=== PATIENT | female | born 1965 | race African-American/Black ===

== ENCOUNTER 2018-03-01 18:17 | Inpatient (IN) | payer OTHER ==
[~2018-03-01] VITALS: Ht 175.3 cm; Wt 112.1 kg
[2018-03-01 18:59] LABS: ABSOLUTE BASOPHIL COUNT 0 /CUMM (0.0-0.2); ABSOLUTE EOSINOPHIL COUNT 0.1 /CUMM (0.0-0.7); ABSOLUTE GRANULOCYTE CT 2.8 /CUMM (1.4-6.5); ABSOLUTE LYMPH COUNT 3.4 /CUMM (1.2-3.4); ABSOLUTE MONOCYTE COUNT 0.7 /CUMM (0.10-0.60); BASOPHIL % 0.7 % (0.0-2.0); EOSINOPHIL % 1.1 % (0-5); GRANULOCYTE % 39.7 % (42.2-75.2); HEMATOCRIT 36.7 % (37-47); MEAN CORPUSCULAR HGB 22.9 PG (27.0-31.0); MEAN CORPUSCULAR HGB CONC 31.6 G/DL (33.0-37.0); MEAN CORPUSCULAR VOLUME 72.3 FL (81.0-99.0); MEAN PLATELET VOLUME 7.6 FL (7.4-10.4); PLATELET COUNT 400 /CUMM (130-400); RBC DISTRIBUTION WIDTH 18.1 % (11.5-14.5); RED BLOOD CELL CT 5.08 /CUMM (4.20-5.40)
--- NOTE | 2018-03-01 19:00 | ED GENERAL ADULT ---
History of Present Illness General Chief Complaint: General Adult Stated Complaint: BIBA HEAD TRAUMA, HYPERTENSIVE CRISIS, EKG CHANGES Source: patient Exam Limitations: no limitations Vital Signs & Intake/Output Vital Signs & Intake/Output Vital Signs Date Time Temp Pulse Resp B/P B/P Pulse O2 O2 Flow FiO2 Mean Ox Delivery Rate 03/02 0400 158/88 03/02 0010 98.8 68 18 172/98 99 Room Air 07/ 2343 Room Air 07/ 2220 60 18 168/93 100 Room Air 07/ 2147 62 18 188/90 100 Room Air 07/06 2121 98.8 65 18 207/98 100 Room Air 07/06 2108 222/102 07/06 2104 98.7 68 18 199/92 99 Room Air / 2049 70 18 222/102 98 Room Air / 2030 98.7 67 18 222/102 /06 2002 98.9 72 18 186/89 100 Room Air / 1947 65 18 214/107 07/ 1945 18 192/83 07/ 1923 85 18 217/103 03/01 1905 Room Air Room Air 03/01 1835 98.8 85 18 202/114 97 Room Air Room Air ED Intake and Output 03/02 0000 0706 1200 Intake Total Output Total Balance Patient 222 lb Weight Weight Bed scale Measurement Method Allergies Coded Allergies: shellfish derived (Severe, ANAPHYLAXIS 03/01/18) codeine (Intermediate, SEVERE HEADACHE 03/01/18) Reconcile Medications Nebivolol HCl (Bystolic) (Unknown Strength) TABLET (Unknown Dose) PO DAILY BP (Reported) Triage Note: PT BIBA FROM URGENT CARE FOR EKG CHANGES, HYPERTENSION S/P EARLIER TODAY PT WAS IN THE BATHROOM WHEN CEILING TILES FELL ON BACK OF HEAD AND NECK. PT COMPLAINS OF L SHOULDER/ARM PAIN, NECK PAIN. INITIALLY HAD SOME DIZZINESS, BUT HAS SINCE RESOLVED. PT ALSO HYPERTENSIVE BUT HAS BEEN NON-COMPLIANT WITH BYSTOLIC MED FOR 2 WEEKS. DENIES CHEST PAIN, SOB, DIZZINESS, CHANGE IN VISION. Triage Nurses Notes Reviewed? yes Onset: Abrupt Duration: hour(s): Timing: recent history Injury Environment: work Severity: moderate Modifying Factors: Improves With: rest. Associated Symptoms: headache HPI: 52 YO WOMAN, h/o htn, not presently taking her meds, presents with headache after a ceiling collapsed on her head at approximately 3: 30pm. She notes, "I was feeling okay, had a little bit of a headache, but then my boss called me and told me to come in.... I went to urgent care and they said my blood pressure was too high and I needed to come in." She notes a headache, mild photophobia, dizziness. She notes neck pain, but no other injury. Past History Travel History Traveled to [place] past 21 day No Medical History Any Pertinent Medical History? see below for history Neurological: NONE EENT: NONE Cardiovascular: hypertension Respiratory: NONE Gastrointestinal: NONE Hepatic: NONE Renal: NONE Musculoskeletal: NONE Psychiatric: NONE Endocrine: NONE Blood Disorders: NONE Cancer(s): NONE Surgical History Surgical History: none Psychosocial History What is your primary language Ken[place] Tobacco Use: Never used ETOH Use: denies use Illicit Drug Use: denies illicit drug use Family History Hx Contributory? No Review of Systems Review of Systems Constitutional: Reports: no symptoms. EENTM: Reports: no symptoms. Respiratory: Reports: no symptoms. Cardiovascular: Reports: no symptoms. GI: Reports: no symptoms. Genitourinary: Reports: no symptoms. Musculoskeletal: Reports: no symptoms. Skin: Reports: no symptoms. Neurological/Psychological: Reports: no symptoms. Hematologic/Endocrine: Reports: no symptoms. Immunologic/Allergic: Reports: no symptoms. All Other Systems: Reviewed and Negative Physical Exam Physical Exam General Appearance: well developed/nourished, mild distress Head: atraumatic, normal appearance Eyes: Bilateral: normal appearance. Ears, Nose, Throat: normal pharynx, normal ENT inspection Neck: paracervical muscle spasm to palpation. Respiratory: normal breath sounds, chest non-tender, no respiratory distress, quiet respiration, lungs clear Cardiovascular: regular rate/rhythm Gastrointestinal: normal bowel sounds, soft, non-tender, no organomegaly Back: normal inspection, normal range of motion Extremities: normal inspection, normal capillary refill, normal range of motion, no edema Neurologic/Psych: no motor/sensory deficits, awake, alert, oriented x 3 Skin: intact, normal color, warm/dry Core Measures ACS in differential dx? No CVA/TIA Diagnosis: No Sepsis Present: No Sepsis Focused Exam Completed? No Progress Differential Diagnoses I considered the following diagnoses in my evaluation of the patient: concussion vs hypertensive urgency vs other. Plan of Care: Orders Procedure Date/time Status Heart Healthy Diet 03/02 B Active TROPONIN LEVEL 03/02 600 Active CBC WITHOUT DIFFERENTIAL 03/02 600 Active BASIC ELECTROLYTES PLUS BUN&CR 03/02 600 Active EKG 03/02 600 Active ECHOCARDIOGRAM 03/02 0514 Active Precautions 03/02 UNK Active Heart Healthy Diet 03/01 D Complete Weight 03/01 2342 Active Vital Signs 03/01 2342 Active Teach/Educate 03/01 2342 Active Pain Treatment and Response 03/01 2342 Active Nutritional Intake, Monitor 03/01 2342 Active Isolation 03/01 2342 Active Intake & Output 03/01 2342 Active Patient Care Conference 03/01 2342 Active Activity/Ambulation 03/01 2342 Active Pathway - chart 03/01 2323 Active Pathway - chart 03/01 2208 Active House Staff 03/01 220 Active TROPONIN LEVEL 03/01 214 Complete EKG 03/01 214 Active Patient Data 03/01 2140 Active Saline Lock 03/01 2139 Active Misc Message 03/01 2139 Active ED Holding Orders 03/01 2139 Active Admit to inpatient 03/01 213 Active Vital Signs 03/01 213 Active Code Status 03/01 2139 Active Intake & Output 03/01 1845 Active TROPONIN LEVEL 03/01 1822 Complete COMPREHENSIVE METABOLIC PANEL 03/01 182 Complete CBC WITHOUT DIFFERENTIAL 03/01 182 Complete EKG 03/01 1822 Active VTE Mechanical Prophylaxis 03/01 UNK Active Vital Signs 03/01 UNK Active Current Medications Sig/Yaneli Start time Last Medication Dose Stop Time Status Admin Enoxaparin Sodium 40 MG DAILY 03/02 900 AC (Lovenox) Lisinopril 10 MG DAILY 03/02 900 UNVr (Prinivil) Nebivolol 20 MG DAILY 03/02 900 UNVr (Bystolic) Acetaminophen 650 MG Q6P PRN 03/01 2330 AC (Tylenol) Ibuprofen 600 MG Q6P PRN 03/01 2330 AC (Motrin) Laboratory Tests 03/01/189: Troponin I 0.02 03/01/181847: Anion Gap 12, Estimated GFR > 60, BUN/Creatinine Ratio 18.8, Glucose 133 H, Calcium 9.7, Total Bilirubin 0.3, AST 27, ALT 36, Alkaline Phosphatase 129 H, Troponin I 0.02, Total Protein 8.1, Albumin 4.3, Globulin 3.8, Albumin/Globulin Ratio 1.1, CBC w Diff NO MAN DIFF REQ, RBC 5.08, MCV 72.3 L, MCH 22.9 L, MCHC 31.6 L, RDW 18.1 H, MPV 7.6, Gran % 39.7 L, Lymphocytes % 48.5, Monocytes % 10.0 H, Eosinophils % 1.1, Basophils % 0.7, Absolute Granulocytes 2.8, Absolute Lymphocytes 3.4, Absolute Monocytes 0.7 H, Absolute Eosinophils 0.1, Absolute Basophils 0 Diagnostic Imaging: Viewed by Me: CT Scan. Discussed w/RAD: CT Scan. Radiology Impression: PATIENT: RYAN GUERRA PRESENT AGE: 52 PATIENT ACCOUNT NO: [id number] : 63 LOCATION: [facility] ORDERING PHYSICIAN: Lakhwinder SANCHEZ SERVICE DATE: 03/01/18 EXAM TYPE: CAT - CT CERV SPINE WO IV CONTRAST; CT HEAD WO IV CONTRAST EXAMINATION: CT OF THE HEAD AND CERVICAL SPINE WITHOUT CONTRAST CLINICAL INFORMATION: HEAD INJURY HYPERTENSIVE URGENCY. TRAUMA COMPARISON: None. TECHNIQUE: Contiguous axial imaging was performed from the skull base to vertex. Soft tissue and bony algorithms were evaluated. Coronal reformatted images were obtained on the technologist's workstation. Following this, multiple serial thin slice helical CT scan images through the cervical spine were obtained. Soft tissue and bony algorithms were evaluated. Coronal and sagittal reformatted images were obtained on the technologist workstation. DLP: 957 mGy cm FINDINGS: Head CT: The ventricles are normal in size and symmetry. There is no evidence of acute intracranial hemorrhage or territorial infarction. No abnormal mass-effect or midline shift is seen. Montes to white matter differentiation is well preserved. No extra-axial fluid collections are identified. There is no abnormal attenuation within the brain parenchyma. The osseous structures and soft tissues are normal. The mastoid air cells and visualized portions of the paranasal sinuses are well-aerated. Cervical spine CT: No prevertebral soft tissue swelling is appreciated. Mild straightening of the normal cervical lordosis possibly due to positioning or spasm. Otherwise the bones are in normal anatomic alignment with no acute fracture or spondylolisthesis. Vertebral body heights are preserved. Mild multilevel degenerative changes are seen with prominent osteophyte formation and mild loss of disc height more prominent from C4 to C7. Posterior elements are unremarkable. Visualized airway and lung apices are unremarkable. Visualized thyroid gland unremarkable. IMPRESSION: Head CT: No acute intracranial pathology. C-spine: No acute bony abnormality in the cervical spine. Mild multilevel degenerative changes. DICTATED BY: Cachorro Ross MD DATE/TIME DICTATED:03/01/182012 PLUNGER MACHINE OPERATOR:SHAUN DATE/TIME TRANSCRIBED:03/01/182012 CONFIDENTIAL, DO NOT COPY WITHOUT APPROPRIATE AUTHORIZATION. <Electronically signed in Other Vendor System> SIGNED BY: Cachorro Ross MD 03/01/182019 CXR Impression: PATIENT: RYAN GUERRA PRESENT AGE: 52 PATIENT ACCOUNT NO: [id number] : 63 LOCATION: 1NO ORDERING PHYSICIAN: Arie Pedraza MD SERVICE DATE: 03/01/18 EXAM TYPE: RAD - XRY- PORTABLE CHEST XRAY EXAMINATION: XR PORTABLE CHEST CLINICAL INFORMATION: Hypertensive urgency. COMPARISON: None. TECHNIQUE: AP portable AP view of the chest FINDINGS: Lungs are clear. No consolidation, pneumothorax, or pleural effusion. Cardiac silhouette is at the upper limits of normal in size. Mediastinal contour is normal. Pulmonary vasculature is unremarkable. 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 No acute osseous findings. IMPRESSION: No acute pulmonary findings. Heart is at the upper limits of normal in size. DICTATED BY: Lorenzo Oneal MD DATE/TIME DICTATED:03/01/182315 PLUNGER MACHINE OPERATOR:SHAUN DATE/TIME TRANSCRIBED:03/01/182315 CONFIDENTIAL, DO NOT COPY WITHOUT APPROPRIATE AUTHORIZATION. <Electronically signed in Other Vendor System> SIGNED BY: Lorenzo Oneal MD 03/01/182320 Initial ED EKG: diffuse flipped t waves, nsr Repeat EKG: unchanged Departure Departure Disposition: HOME OR SELF CARE Condition: Stable Clinical Impression Primary Impression: Hypertensive urgency Secondary Impressions: Concussion Departure Forms: Customer Survey General Discharge Information Comments 03/01/18 21:10... pt still hypertensive w/ headache... pt has received several parenteral bp meds, still symptomatic... merits admission for further evaluation. Critical Care Note Critical Care Note Critical Care Time: 30-74 min
[2018-03-01] MEDS ORDERED: BYSTOLIC20 M1 PO (19:46)
--- NOTE | 2018-03-01 20:20 | CT SCAN REPORT ---
EXAMINATION: CT OF THE HEAD AND CERVICAL SPINE WITHOUT CONTRAST CLINICAL INFORMATION: HEAD INJURY HYPERTENSIVE URGENCY. TRAUMA COMPARISON: None. TECHNIQUE: Contiguous axial imaging was performed from the skull base to vertex. Soft tissue and bony algorithms were evaluated. Coronal reformatted images were obtained on the technologist's workstation. Following this, multiple serial thin slice helical CT scan images through the cervical spine were obtained. Soft tissue and bony algorithms were evaluated. Coronal and sagittal reformatted images were obtained on the technologist workstation. DLP: 957 mGy cm FINDINGS: Head CT: The ventricles are normal in size and symmetry. There is no evidence of acute intracranial hemorrhage or territorial infarction. No abnormal mass-effect or midline shift is seen. Montes to white matter differentiation is well preserved. No extra-axial fluid collections are identified. There is no abnormal attenuation within the brain parenchyma. The osseous structures and soft tissues are normal. The mastoid air cells and visualized portions of the paranasal sinuses are well-aerated. Cervical spine CT: No prevertebral soft tissue swelling is appreciated. Mild straightening of the normal cervical lordosis possibly due to positioning or spasm. Otherwise the bones are in normal anatomic alignment with no acute fracture or spondylolisthesis. Vertebral body heights are preserved. Mild multilevel degenerative changes are seen with prominent osteophyte formation and mild loss of disc height more prominent from C4 to C7. Posterior elements are unremarkable. Visualized airway and lung apices are unremarkable. Visualized thyroid gland unremarkable. IMPRESSION: Head CT: No acute intracranial pathology. C-spine: No acute bony abnormality in the cervical spine. Mild multilevel degenerative changes.
--- NOTE | 2018-03-01 21:52 | History & Physical ---
Raf Martin 03/01/18 2151: General Information and HPI MD Statement: I have seen and personally examined RYAN GUERRA and documented this H&P. The patient is a 52 year old F who presented with a patient stated chief complaint of [HTN crisis and head trauma]. Source of Information: patient, family Exam Limitations: no limitations History of Present Illness: The patient is a 52 years old lady who was in ED due to hypertensive emergency ( BP: 218/124) and abnormal ECG. She was at work this afternoon at 3:30, using the bathroom and the ceiling fell off on her head and shoulder, she did not fall down on the floor but she says that she is not sure if she had LOC. She was taken to urgernt care this afternoon at 3:45. Her BP was 208/120 at the urgent care. Once she was to be transfered here her BP was 218/124. She had no chest pain, SOB, visual changes, headache, abd pain, or N/V. She has a history of ten years of HTN and she has been on different medications in these years, lately she was on Bi-systolic, since it makes her feel sleepy she had stopped it from two weeks ago. She also reports increased salt intake in her diet recently. She is in school studying [employer] and she says that it causes stress to her. In the ED Labetolol and IV Tylenol were given to her. Her BP decreased to 168/ 93. Past medical history: As above Past surgical history: cholecystectomy, cataracts, ?therese in her right orbitofrontal region over her right eye s/p trauma Family history: No significant cardiac or hematologic history Social history: Denies smoking, occasional alcohol use (3 times per year), denies illicit drug use. Vitals: MAXIMUM TEMPERATURE 98.9, heart rate 60-80s, respiration rate 18, blood pressure 202/114 --> 214/107 --> 188/90-->168/93, saturating at 98-100% on room air Physical exam Gen.: Resting comfortably in bed HEENT: Normocephalic, atraumatic, pupils equal and reactive to light and accommodation, extraocular movements intact CVS: Regular rate rhythm, no murmurs, rubs or gallops appreciated Lungs: Clear to auscultation bilaterally Abdomen: Soft, nontender, nondistended, positive bowel sounds Neuro: Cranial nerves II through XII intact, motor and sensation intact Extremities: no edema, tenderness, cyanosis, pulses 2+ Labs: WBC 7, H&H 11.6 and 36.7, MCV 72.3, platelets 400 Sodium 142, potassium 3.7, chloride 100, bicarbonate 29, BUN 15, creatinine 0.8, glucose 133, calcium 9.7, T bili 0.3, AST 27, ALT 26, alkaline phosphatase 129, troponin 0.02 --> repeat troponin 0.02 EKG: Normal sinus rhythm, T-wave inversions in leads 1, 2, 3, aVF, V4, V5, V6, LVH Imaging: Chest x-ray: No acute pulmonary findings. Heart is at the upper limits of normal in size. Head CT: No acute intracranial pathology. C-spine: No acute bony abnormality in the cervical spine. Mild multilevel degenerative changes. Past History Travel History Traveled to [place] past 21 day No Medical History Neurological: NONE EENT: NONE Cardiovascular: hypertension Respiratory: NONE Gastrointestinal: NONE Hepatic: NONE Renal: NONE Musculoskeletal: NONE Psychiatric: NONE Endocrine: NONE Blood Disorders: NONE Cancer(s): NONE Surgical History Surgical History: none (Cataracts), cholecystectomy (cataracts) Past Family/Social History Psychosocial History ETOH Use: denies use Illicit Drug Use: denies illicit drug use Review of Systems Review of Systems EENTM: Reports: no symptoms. Cardiovascular: Reports: see HPI. Respiratory: Reports: no symptoms. GI: Reports: no symptoms. Genitourinary: Reports: no symptoms. Exam & Diagnostic Data Last 24 Hrs of Vital Signs/I&O Vital Signs Date Time Temp Pulse Resp B/P B/P Pulse O2 O2 Flow FiO2 Mean Ox Delivery Rate 03/02 0705 98.8 64 18 170/92 98 07/07 0400 158/88 07/ 0010 98.8 68 18 172/98 99 Room Air / 2343 Room Air / 2220 60 18 168/93 100 Room Air / 2147 62 18 188/90 100 Room Air 07/ 2121 98.8 65 18 207/98 100 Room Air 07/06 2108 222/102 / 210 98.7 68 18 199/92 99 Room Air / 2049 70 18 222/102 98 Room Air 07/ 2030 98.7 67 18 222/102 07/06 2002 98.9 72 18 186/89 100 Room Air 03/01 1947 65 18 214/107 03/01 194 18 192/83 03/01 192 85 18 217/103 03/01 1905 Room Air Room Air 03/01 183 98.8 85 18 202/114 97 Room Air Room Air Intake & Output 03/02 0800 07 0000 03/01 1600 Intake Total 320 Output Total Balance 320 Intake, Oral 320 Patient 222 lb Weight Weight Bed scale Measurement Method Physical Exam Skin Temp/Moisture Exam: Warm/Dry Sepsis Skin Exam (color): Normal for Ethnicity HEENT Atraumatic, PERRLA, EOMI Neck Supple, No JVD Cardiovascular Regular Rate, Normal S1, Normal S2, No Murmurs Lungs Clear to Auscultation, Normal Air Movement Abdomen Normal Bowel Sounds, Soft, No Tenderness Neurological Normal Speech, Strength at 5/5 X4 Ext Extremities No Clubbing, No Cyanosis, No Edema, Normal Pulses Vascular Normal Pulses Sepsis Peripheral Pulse Location: Dorsalis Pedis Sepsis Peripheral Pulse Exam: Normal Sepsis Cap Refill Exam: <2 Sec Assessment/Plan Assessment: The patient is a 52-year-old overweight -[place] female with significant past medical hx for HTN noncompliant with medications for the past two weeks presenting this admission for hypertensive urgency (218/124) and possible concussion status post recent trauma. As Ranked By This Provider Problem List: 1. Hypertensive urgency 2. Concussion Core Measures/Misc (05/13) Acute Coronary Syndrome ACS Diagnosis: No Congestive Heart Failure Congestive Heart Failure Diagnosis No Cerebrovascular Accident CVA/TIA Diagnosis: No VTE (View Protocol) VTE Risk Factors Age>40 No Mechanical VTE Prophylaxis d/t N/A MechProphylax Ordered No VTE Pharm Prophylaxis d/t NA PharmProphylax ordered Sepsis (View protocol) Sepsis Present: No If YES complete Sepsis Event Note If YES complete Sepsis Event Note Bipin YATESJuan José 03/02/18 0150: General Information and HPI MD Statement: I have seen and personally examined RYAN GUERRA and documented this H&P. The patient is a 52 year old F who presented with a patient stated chief complaint of [hypertensive Urgency]. Allergies/Medications Allergies: Coded Allergies: shellfish derived (Severe, ANAPHYLAXIS 03/01/18) codeine (Intermediate, SEVERE HEADACHE 03/01/18) Home Med list Nebivolol HCl (Bystolic) (Unknown Strength) TABLET (Unknown Dose) PO DAILY BP (Reported) Review of Systems Review of Systems Constitutional: Reports: see HPI. Exam & Diagnostic Data Last 24 Hrs of Vital Signs/I&O Vital Signs Date Time Temp Pulse Resp B/P B/P Pulse O2 O2 Flow FiO2 Mean Ox Delivery Rate 03/02 0010 98.8 68 18 172/98 99 Room Air 03/01 2343 Room Air 03/01 2220 60 18 168/93 100 Room Air 03/01 2147 62 18 188/90 100 Room Air 03/01 2121 98.8 65 18 207/98 100 Room Air 03/01 2108 222/102 / 2104 98.7 68 18 199/92 99 Room Air 03/01 2049 70 18 222/102 98 Room Air 03/01 2030 98.7 67 18 222/102 / 2002 98.9 72 18 186/89 100 Room Air 03/01 1947 65 18 214/107 03/01 1945 18 192/83 03/01 1923 85 18 217/103 03/01 1905 Room Air Room Air 03/01 1835 98.8 85 18 202/114 97 Room Air Room Air Intake & Output 03/02 0800 07 0000 03/01 1600 Intake Total Output Total Balance Patient 222 lb Weight Weight Bed scale Measurement Method Physical Exam General Appearance Alert, Oriented X3, Cooperative, No Acute Distress Skin No Rashes HEENT Atraumatic, PERRLA, EOMI Neck Supple, No JVD Cardiovascular Regular Rate, Normal S1, Normal S2, No Murmurs Lungs Clear to Auscultation Abdomen Normal Bowel Sounds, Soft Last 24 Hrs of Labs/Meir: Laboratory Tests 03/01/182148: Troponin I 0.02 03/01/18 184: Anion Gap 12, Estimated GFR > 60, BUN/Creatinine Ratio 18.8, Glucose 133 H, Calcium 9.7, Total Bilirubin 0.3, AST 27, ALT 36, Alkaline Phosphatase 129 H, Troponin I 0.02, Total Protein 8.1, Albumin 4.3, Globulin 3.8, Albumin/Globulin Ratio 1.1, CBC w Diff NO MAN DIFF REQ, RBC 5.08, MCV 72.3 L, MCH 22.9 L, MCHC 31.6 L, RDW 18.1 H, MPV 7.6, Gran % 39.7 L, Lymphocytes % 48.5, Monocytes % 10.0 H, Eosinophils % 1.1, Basophils % 0.7, Absolute Granulocytes 2.8, Absolute Lymphocytes 3.4, Absolute Monocytes 0.7 H, Absolute Eosinophils 0.1, Absolute Basophils 0 Core Measures/Misc (05/13) Sepsis (View protocol) If YES complete Sepsis Event Note If YES complete Sepsis Event Note Attending MD Review Statement Attending Statement Attending MD Statement: examined this patient, discuss w/resident/PA/SWINE GENETICS RESEARCHER Attending Assessment/Plan: This patient is a 52-year-old -[place] female with a minimal past medical history. She presents after being struck in the head by some falling debris in her place of work. When evaluated in the emergency department the patient was found to have severely elevated blood pressure which went as high as 222/102 patient received IV beta blockers and hydralazine with success. Currently she is running around 170/95 Upon evaluation the patient was sitting comfortably on the bed and felt a little bit funny without specific complaints. Assessment and plan Hypertensive urgency Currently controlled on IV medications Added enalapril and restarted bystolic Will observe overnight and modify as necessary Continue to follow blood pressure Watch for unsteadiness in gait Fall risk Lenard Lambert MD 03/02/18 0637: Core Measures/Misc (05/13) Sepsis (View protocol) If YES complete Sepsis Event Note If YES complete Sepsis Event Note Resident Review Statement Resident Statement: examined this patient, discussed with architect internship, discussed with family, reviewed EMR data (avail) Other Findings: Patient is a 52-year-old female with past medical history of long-standing hypertension diagnosed 10 years ago currently on bystolic presenting this admission after being sent in for abnormal EKG and elevated blood pressure. Patient reports that today at approximately 3:20 PM she was sitting in the bathroom on the toilet seat at work when the ceiling above her cell on her head. Patient denies any loss of consciousness. Denies falling. Denies any cuts or bruises. Reports significant left sided neck pain that radiates down her left shoulder. Rates it an 8 out of 10 in severity. Patient reports that she went to urgent care after the incident at work. At the urgent care facility she was told her blood pressure was elevated to 204/120 and that she had an abnormal EKG. Patient was sent to the ED by ambulance prior to which her repeat blood pressure was taken and was 218/124. Patient denies any chest pain, shortness of breath, visual disturbances, headaches, abdominal pain, nausea/vomiting. Patient reports that she has not been compliant with her blood pressure medication as it makes her feel tired and sleepy. Reports that the last time she took her medications and was 2 weeks ago. Patient states she has been tried on multiple antihypertensives however she has had side effects with each one. Reports the one she tolerates the best is bystolic. Patient also reports that she has increased her salt intake recently. Patient reports stress from her studiesis currently enrolled in classes for an [employer]. In the ED patient was given IV Tylenol, labetalol 20 mg IV 2, labetalol 300 mg by mouth 1. Patient's blood pressure came down to 188/90 and during interview was repeated and was 168/93. Past medical history: As above Past surgical history: cholecystectomy, cataracts, ?therese in her right orbitofrontal region over her right eye s/p trauma Family history: No significant cardiac or hematologic history Social history: Denies smoking, occasional alcohol use (3 times per year), denies illicit drug use. PCP: Dr. Sally Isbell Pharmacy: [facility] in [place] Vitals: MAXIMUM TEMPERATURE 98.9, heart rate 60-80s, respiration rate 18, blood pressure 202/114 --> 214/107 --> 188/90-->168/93, saturating at 98-100% on room air Physical exam Gen.: Resting comfortably in bed HEENT: Normocephalic, atraumatic, pupils equal and reactive to light and accommodation, extraocular movements intact CVS: Regular rate rhythm, no murmurs, rubs or gallops appreciated Lungs: Clear to auscultation bilaterally Abdomen: Soft, nontender, nondistended, positive bowel sounds Neuro: Cranial nerves II through XII intact, motor and sensation intact Extremities: no edema, tenderness, cyanosis, pulses 2+ Labs: WBC 7, H&H 11.6 and 36.7, MCV 72.3, platelets 400 Sodium 142, potassium 3.7, chloride 100, bicarbonate 29, BUN 15, creatinine 0.8, glucose 133, calcium 9.7, T bili 0.3, AST 27, ALT 26, alkaline phosphatase 129, troponin 0.02 --> repeat troponin 0.02 EKG: Normal sinus rhythm, T-wave inversions in leads 1, 2, 3, aVF, V4, V5, V6, LVH Imaging: Chest x-ray: No acute pulmonary findings. Heart is at the upper limits of normal in size. Head CT: No acute intracranial pathology. C-spine: No acute bony abnormality in the cervical spine. Mild multilevel degenerative changes. Assessment and plan: The patient is a 52-year-old obese -[place] female with significant past medical history for hypertension currently noncompliant with medications presenting this admission for hypertensive urgency and possible concussion status post recent trauma. Problems: Hypertensive Urgency Concussion s/p trauma Microcytic Anemia Admitted to telemetry Continue telemetry monitoring Repeat EKG and troponins ECHO Vitals every shift Repeat CBC and BEP in a.m. Heart healthy diet Restarted on Bystolic and started on ACEi Outpatient workup of anemia Diet: Heart healthy Code: Full code DVT PPx: Lovenox, ALPs
--- NOTE | 2018-03-01 23:21 | RADIOLOGY REPORT ---
EXAMINATION: XR PORTABLE CHEST CLINICAL INFORMATION: Hypertensive urgency. COMPARISON: None. TECHNIQUE: AP portable AP view of the chest FINDINGS: Lungs are clear. No consolidation, pneumothorax, or pleural effusion. Cardiac silhouette is at the upper limits of normal in size. Mediastinal contour is normal. Pulmonary vasculature is unremarkable. 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 No acute osseous findings. IMPRESSION: No acute pulmonary findings. Heart is at the upper limits of normal in size.
[2018-03-02 00:10] VITALS: BP 172/98
[2018-03-02 04:00] VITALS: BP 158/88
[2018-03-02 07:05] VITALS: BP 170/92
[2018-03-02 08:37] LABS: ABSOLUTE BASOPHIL COUNT 0 /CUMM (0.0-0.2); ABSOLUTE EOSINOPHIL COUNT 0.1 /CUMM (0.0-0.7); ABSOLUTE LYMPH COUNT 3.1 /CUMM (1.2-3.4); ABSOLUTE MONOCYTE COUNT 0.6 /CUMM (0.10-0.60); BASOPHIL % 0.6 % (0.0-2.0); EOSINOPHIL % 1.2 % (0-5); GRANULOCYTE % 34.3 % (42.2-75.2); MEAN CORPUSCULAR HGB 23.2 PG (27.0-31.0); MEAN CORPUSCULAR HGB CONC 31.9 G/DL (33.0-37.0); MEAN CORPUSCULAR VOLUME 72.8 FL (81.0-99.0); MEAN PLATELET VOLUME 7.9 FL (7.4-10.4); PLATELET COUNT 343 /CUMM (130-400); RBC DISTRIBUTION WIDTH 18.1 % (11.5-14.5); RED BLOOD CELL CT 4.67 /CUMM (4.20-5.40); WHITE BLOOD CELL COUNT 5.8 /CUMM (4.8-10.8)
--- NOTE | 2018-03-02 08:44 | PN- Housestaff ---
Serina YATES,Radha 03/02/18 0843: Subjective Follow-up For: Hypertensive urgency Concussion status post trauma Tele-Events Since Last Visit: Normal sinus rhythm Subjective: Patient seen and examined at bedside. No overnight events. Denies chest pain, headache, double vision, dizziness, weakness, numbness. Review of Systems Constitutional: Reports: no symptoms. Objective Last 24 Hrs of Vital Signs/I&O Vital Signs Date Time Temp Pulse Resp B/P B/P Pulse O2 O2 Flow FiO2 Mean Ox Delivery Rate 03/02 0804 170/92 / 0705 98.8 64 18 170/92 98 / 0400 158/88 03/02 0010 98.8 68 18 172/98 99 Room Air 03/01 2343 Room Air 03/01 2220 60 18 168/93 100 Room Air 03/01 2147 62 18 188/90 100 Room Air / 2121 98.8 65 18 207/98 100 Room Air / 2108 222/102 / 2104 98.7 68 18 199/92 99 Room Air 03/01 2049 70 18 222/102 98 Room Air / 2030 98.7 67 18 222/102 /06 2002 98.9 72 18 186/89 100 Room Air / 1947 65 18 214/107 / 1945 18 192/83 03/01 1923 85 18 217/103 03/01 1905 Room Air Room Air 03/01 1835 98.8 85 18 202/114 97 Room Air Room Air Intake & Output 03/02 1600 07/ 0800 07 0000 Intake Total 320 Output Total Balance 320 Intake, Oral 320 Patient 222 lb Weight Weight Bed scale Measurement Method Physical Exam General Appearance: Alert, Oriented X3, Cooperative, No Acute Distress Cardiovascular: Regular Rate, Normal S1, Normal S2, No Murmurs Lungs: Clear to Auscultation Abdomen: Soft, No Tenderness, No Hepatospenomegaly Neurological: Strength at 5/5 X4 Ext, Normal Tone, Sensation Intact Current Medications: Current Medications Sig/Yaneli Start time Last Medication Dose Route Stop Time Status Admin Acetaminophen 650 MG Q6P PRN 03/01 2330 AC PO Acetaminophen 0 .STK-MED ONE 03/01 1925 DC IV Acetaminophen 1,000 MG ONCE ONE 03/01 1915 DC 03/01 N/A 1 UNIT IV 03/01 1929 1930 Enalaprilat 2.5 MG STAT STA 03/01 2128 DC IV 03/01 2129 Enoxaparin Sodium 40 MG DAILY 03/02 900 AC 03/02 SC 0803 Enoxaparin Sodium 40 MG DAILY 03/02 900 CAN SC Hydralazine HCl 0 .STK-MED ONE 03/01 2138 DC .ROUTE Hydralazine HCl 10 MG ONCE ONE 03/01 2130 DC IV 03/01 2131 Ibuprofen 600 MG Q6P PRN 03/01 2330 DC PO Labetalol HCl 20 MG ONCE ONE 03/01 2100 DC 03/01 IV 03/01 Labetalol HCl 300 MG ONCE ONE 03/01 2030 DC 03/01 PO 03/01 Labetalol HCl 0 .STK-MED ONE 03/01 1925 DC IV Labetalol HCl 20 MG ONCE ONE 03/01 191 DC 03/01 IV 03/01 191 1947 Lisinopril 10 MG DAILY 03/02 900 AC PO Nebivolol 20 MG DAILY 03/02 900 AC 03/02 PO 0804 Last 24 Hrs of Lab/Meir Results Last 24 Hrs of Labs/Mics: Laboratory Tests 03/02/18 0656: Anion Gap 12, Estimated GFR > 60, BUN/Creatinine Ratio 15.6, Troponin I 0.02, CBC w Diff NO MAN DIFF REQ, RBC 4.67, MCV 72.8 L, MCH 23.2 L, MCHC 31.9 L, RDW 18.1 H, MPV 7.9, Gran % 34.3 L, Lymphocytes % 54.0 H, Monocytes % 9.9 H, Eosinophils % 1.2, Basophils % 0.6, Absolute Granulocytes 2.0, Absolute Lymphocytes 3.1, Absolute Monocytes 0.6, Absolute Eosinophils 0.1, Absolute Basophils 0 03/01/18 2149: Troponin I 0.02 03/01/18 1848: Anion Gap 12, Estimated GFR > 60, BUN/Creatinine Ratio 18.8, Glucose 133 H, Calcium 9.7, Total Bilirubin 0.3, AST 27, ALT 36, Alkaline Phosphatase 129 H, Troponin I 0.02, Total Protein 8.1, Albumin 4.3, Globulin 3.8, Albumin/Globulin Ratio 1.1, CBC w Diff NO MAN DIFF REQ, RBC 5.08, MCV 72.3 L, MCH 22.9 L, MCHC 31.6 L, RDW 18.1 H, MPV 7.6, Gran % 39.7 L, Lymphocytes % 48.5, Monocytes % 10.0 H, Eosinophils % 1.1, Basophils % 0.7, Absolute Granulocytes 2.8, Absolute Lymphocytes 3.4, Absolute Monocytes 0.7 H, Absolute Eosinophils 0.1, Absolute Basophils 0 Assessment/Plan Assessment: patient is a 52-year-old obese -[place] female with significant past medical history for hypertension currently noncompliant with medications presenting this admission for hypertensive urgency and possible concussion status post recent trauma. Assessment and plan 1. Hypertensive urgency 2. Concussion status post trauma. * Patient be monitored in telemetry. * Blood pressure is controlled. Today blood pressure is 170/92. We will make sure that the systolic blood pressure fall is not more than 20 mmHg in 24 hours to avoid stroke. * Patient is on nebivolol 20 daily. * If blood pressure is more than 180/90 we will add calcium channel paul. This was discussed with the patient. Patient denies taking lisinopril. * Pending echocardiogram to rule out any left ventricular hypertrophy given long -standing hypertension. * Patient had T-wave inversion in leads V4, V5, V6. We are not sure if this is new. We will get cardiology on board. According to the patient she had a stress test and echocardiogram done more than 6 years ago which was normal. * Diet-heart healthy diet * DVT prophylaxis-Lovenox Problem List: 1. Hypertensive urgency Pain Ratin Pain Location: NONE Pain Goal: Remain pain free Pain Plan: TYLENOL Tomorrow's Labs & Rationales: CBC,BEP Orion YATES,Amir 03/02/18 1353: Attending MD Review Statement Attending Statement Attending MD Statement: examined this patient, discuss w/resident/PA/AIR CONDITIONING SHEET METAL INSTALLER, agreed w/resident/PA/AIR CONDITIONING SHEET METAL INSTALLER, discussed with family, reviewed EMR data (avail), discussed with nursing Attending Assessment/Plan: Pt was seen and evalauted, chart reviewed. BP on high side. Pt attributes it to stress. --agree with cards eval --f/u Echo results --titrate BP meds --rest of the plan as per resident's note
--- NOTE | 2018-03-02 11:23 | Cons- Cardiology ---
General Information and HPI Consulting Request Date of Consult: 03/02/18 Requested By: Juan José Voss MD History of Present Illness: Ms. Rivera is a 52 year od female who presented to an urgent care facility for evaluation of head trauma that occured when a piece of her bathroom ceiling fell down and hit her hed and shoulder. She was not sure if there was any associated loss of consciousness but she did not fall down. The patient was discovered to be severely hypertensive with a blood pressure of 218/124 and was sent to the ER for further evaluation and treatment. Severe hypertension is not a new issue for this patient who is currently being treated with Bystolic although she admits to not taking it faithfully due to the drug making her feel fatigued. She also reports increased salt intake in her diet recently. She is in school studying [employer] and she says that it causes stress to her. The patient denies headache, visual or urinary changes. She does have some chest tightness with exertion that is not new. Mild to moderate physical activity is met with shortness of breath and she has rare palpitations. Allergies/Medications Allergies: Coded Allergies: shellfish derived (Severe, ANAPHYLAXIS 03/01/18) codeine (Intermediate, SEVERE HEADACHE 03/01/18) Home Med List: Nebivolol HCl (Bystolic) (Unknown Strength) TABLET (Unknown Dose) PO DAILY BP (Reported) Review of Systems Review of Systems: A review of systems is unremarkable. Past History Travel History Traveled to [place] past 21 day No Medical History Blood Transfusion Hx: No Neurological: NONE EENT: NONE Cardiovascular: hypertension Respiratory: NONE Gastrointestinal: NONE Hepatic: NONE Renal: NONE Musculoskeletal: NONE Psychiatric: NONE Endocrine: NONE Blood Disorders: NONE Cancer(s): NONE Surgical History Surgical History: cholecystectomy (cataracts), 1 (Cataracts) Psychosocial History Where Do You Live? Home Smoking Status: Never Smoked ETOH Use: denies use Illicit Drug Use: denies illicit drug use Exam & Diagnostic Data Vital Signs and I&O Vital Signs Date Time Temp Pulse Resp B/P B/P Pulse O2 O2 Flow FiO2 Mean Ox Delivery Rate 03/02 0804 170/92 03/02 0705 98.8 64 18 170/92 98 07/ 0400 158/88 03/02 0010 98.8 68 18 172/98 99 Room Air 03/01 2343 Room Air 03/01 2220 60 18 168/93 100 Room Air 03/01 2147 62 18 188/90 100 Room Air 03/01 2121 98.8 65 18 207/98 100 Room Air 03/01 2108 222/102 / 2104 98.7 68 18 199/92 99 Room Air 03/01 2049 70 18 222/102 98 Room Air / 2030 98.7 67 18 222/102 / 2002 98.9 72 18 186/89 100 Room Air 03/01 1947 65 18 214/107 03/01 1945 18 192/83 03/01 1923 85 18 217/103 03/01 1905 Room Air Room Air 03/01 1835 98.8 85 18 202/114 97 Room Air Room Air Intake & Output 03/02 1600 03/02 0800 03/02 0000 03/01 1600 03/01 0800 03/01 0000 Intake Total 320 Output Total Balance 320 Intake, Oral 320 Patient 222 lb Weight Weight Bed scale Measurement Method Physical Exam: General: WD/WN male in NAD; alert and oriented x 3 HEENT: NC/AT, PERRL, EOMI Neck: no JVD, no carotid bruit Heart: RRR w/o murmur Lungs: clear bilaterally Abdomen: soft, NT, +ve bowel sounds Extremities: no edema Assessment/Plan Assessment/Plan * This patient has poorly controlled hypertension without any evidence of hypertensive urgency. Obtain an echocardiogram to assess for LVH and myocardial dysfunction.` * Would avoid NSAIDS. * Begin HCTZ 25mg daily. * Continue Nebivolol at 20mg daily. * Will observe her blood pressure on these medications and consider additional therapy. The patient should be on a low sodium and weight loss diet. * Would obtain a stress test, which can be done as an outpatient, for her exertional chest pain. In all likelihood, this symptom is related to her severe hypertension. * Check a urinalysis. Consult Acknowledgment - Thank you for your consult request.
[2018-03-02 14:11] VITALS: BP 144/66
[2018-03-02 22:04] VITALS: BP 162/90
[2018-03-02 22:30] VITALS: BP 150/88
--- NOTE | 2018-03-03 07:33 | ECHOCARDIOGRAM REPORT ---
MARI RYAN Age: 52 : 1965 Gender: F Exam Date: 03/02/2018 11:50 Exam Location: [address] Ht (in): 69 Wt (lb): 222 BSA: 2.25 BP: 158 / 88 Ordering Physician: Lenard Lambert MD Referring Physician: Lenard Lambert MD Technologist: Daphne Fisher [facility] Room Number: 189-02 Indications: Rhythm: Sinus Technical Quality: good FINDINGS Left Ventricle Normal left ventricular size with mild to moderate left ventricular hypertrophy. Hyperdynamic systolic function with no obvious regional wall motion abnormalities. Normal left ventricular diastolic filling pattern for age. The ejection fraction is visually estimated at 75%. Right Ventricle The right ventricle is normal in size and function. Right Atrium The right atrium is normal in size. Left Atrium The left atrium is mildly enlarged. The interatrial septum is intact. Mitral Valve The mitral valve is normal in structure and function. There is trace mitral regurgitation. Aortic Valve Structurally normal aortic valve without significant sclerosis or stenosis. There is no aortic regurgitation. Tricuspid Valve The tricuspid valve is normal in structure and function. There is no tricuspid regurgitation. Pulmonic Valve Structurally normal pulmonic valve. There is trace pulmonic regurgitation. Pericardium Normal pericardium without effusion. No pleural effusion. Great Vessels Normal aortic root dimension. The aortic arch and great vessels are well seen and are normal. CONCLUSIONS 1. Hyperdynamic EF of 75%. 2. Mild to moderate left ventricular hypertrophy. 3. Mild left atrial enlargement. 4. Trace mitral regurgitation. 5. Trace pulmonic regurgitation. Zuhair Okeefe M.D. (Electronically Signed) Final Date: 03 March 2018 07:32 MEASUREMENTS (Male / Female) Normal Values 2D ECHO LV Diastolic Diameter PLAX 4.3 cm 4.2 - 5.9 / 3.9 - 5.3 cm LV Systolic Diameter PLAX 2.4 cm 2.1 - 4.0 cm LV Fractional Shortening PLAX 44.2 % 25 - 46 % LV Ejection Fraction 2D Teich 75.7 % IVS Diastolic Thickness 1.3 cm LVPW Diastolic Thickness 1.4 cm LV Relative Wall Thickness 0.6 LVOT Diameter 1.8 cm Aortic Root Diameter 2.6 cm LA Systolic Diameter LX 4.2 cm 3.0 - 4.0 / 2.7 - 3.8 cm DOPPLER AV Peak Velocity 145.0 cm/s AV Peak Gradient 8.4 mmHg LVOT Peak Velocity 122.0 cm/s LVOT Peak Gradient 6.0 mmHg AV Area Cont Eq pk 2.1 cm Mitral E Point Velocity 66.1 cm/s Mitral A Point Velocity 31.6 cm/s Mitral E to A Ratio 2.1 MV Deceleration Time 352.0 ms PV Peak Velocity 82.8 cm/s PV Peak Gradient 2.7 mmHg LV E' Lateral Velocity 8.0 cm/s Mitral E to LV E' Lateral Ratio 8.3 LV E' Septal Velocity 6.8 cm/s Mitral E to LV E' Septal Ratio 9.7
[2018-03-03 08:04] LABS: ABSOLUTE BASOPHIL COUNT 0.1 /CUMM (0.0-0.2); ABSOLUTE EOSINOPHIL COUNT 0.1 /CUMM (0.0-0.7); ABSOLUTE GRANULOCYTE CT 1.6 /CUMM (1.4-6.5); ABSOLUTE LYMPH COUNT 3.2 /CUMM (1.2-3.4); ABSOLUTE MONOCYTE COUNT 0.6 /CUMM (0.10-0.60); BASOPHIL % 1.1 % (0.0-2.0); EOSINOPHIL % 1.5 % (0-5); GRANULOCYTE % 28.9 % (42.2-75.2); HEMATOCRIT 36.2 % (37-47); MEAN CORPUSCULAR HGB 22.6 PG (27.0-31.0); MEAN CORPUSCULAR HGB CONC 30.8 G/DL (33.0-37.0); MEAN CORPUSCULAR VOLUME 73.4 FL (81.0-99.0); PLATELET COUNT 363 /CUMM (130-400); RBC DISTRIBUTION WIDTH 17.9 % (11.5-14.5); RED BLOOD CELL CT 4.93 /CUMM (4.20-5.40); WHITE BLOOD CELL COUNT 5.7 /CUMM (4.8-10.8)
[2018-03-03 08:05] VITALS: BP 158/74
[2018-03-03 08:06] VITALS: BP 158/72
--- NOTE | 2018-03-03 09:09 | PN- Housestaff ---
Malorie Mcnamara 03/03/18 0908: Subjective Follow-up For: Hypertensive urgency Concussion status post trauma Complaints: dull headache, and lt shoulder pain, she feels she has a little bit of trouble recalling like her insurance details when the nursse asked Tele-Events Since Last Visit: Sinus bradycardia 55-58 Subjective: No complaints/no events overnight Review of Systems Constitutional: Reports: see HPI. Objective Last 24 Hrs of Vital Signs/I&O Vital Signs Date Time Temp Pulse Resp B/P B/P Pulse O2 O2 Flow FiO2 Mean Ox Delivery Rate 03/03 0806 158/72 03/03 0806 97.9 63 18 97 Room Air 03/03 0805 158/74 03/02 2230 150/88 03/02 2204 98.6 69 22 162/90 99 03/02 1411 98.2 65 17 144/66 95 Room Air Intake & Output 03/03 1600 03/03 0800 03/03 0000 Intake Total 120 220 Output Total 150 Balance 120 70 Intake, Oral 120 220 Output, Urine 150 Patient 247 lb Weight Physical Exam General Appearance: Alert, Oriented X3, Cooperative Skin: No Rashes, No Breakdown, No Significant Lesion Skin Temp/Moisture Exam: Cool/Dry HEENT: Atraumatic, PERRLA Neck: Supple Cardiovascular: Regular Rate, Normal S1, Normal S2, No Murmurs Lungs: Clear to Auscultation, Normal Air Movement Neurological: Normal Speech Extremities: No Clubbing, No Cyanosis, No Edema Assessment/Plan Assessment: My patient is a 52-year-old obese -[place] female with PMHx of hypertension, noncompliant with medications presenting this admission for hypertensive urgency and possible concussion status post recent trauma of the ceiling falling on her head at work. Vitals: Temp 97.9, pulse 63, respiratory rate 18, BP 1 58 x 72, 97% on room air. Labs: WBC 5.7, hemoglobin 11.1, hematin crit 36.2, platelet 363, sodium 140, potassium 4.1, chloride 102, bicarb 27, anion gap 11, BUN 13, creatinine 0.9 Vitals:97.9, Pulse 63, RR 18, BP 158/72, 97% RA Labs:WBC 5.7, Hgb 11.1, Hct 36.2, plt 363, Na 140, K 4.1, Cl 102, Bicarb 27, AG 11 Troponin: 0.02--- 0.02--- 0.02 Assessment and plan: -D/c today #Hypertensive urgency: BP is 158/72 today. -Avoid NSAIDs -HCTZ 25 mg daily -Continue Nebivolol at 20mg daily. -Low sodium, weight loss diet -stress test as an outpatient -echo: to look for LVH post long standing htn as outpatient -f/u with cardio as an outpatient -f/u with pcp #Concussion status post trauma: nebivolol 20 daily. #Diet-heart healthy diet #DVT prophylaxis-Lovenox Problem List: 1. Hypertensive urgency 2. Concussion Pain Ratin Pain Location: Left shoulder Pain Goal: Pain 4 or less Pain Plan: Tylenol Tomorrow's Labs & Rationales: BEP, CBC Orion YATES,Amir 03/03/18 1132: Attending MD Review Statement Attending Statement Attending MD Statement: examined this patient, discuss w/resident/PA/EMPLOYMENT ADVISOR, agreed w/resident/PA/EMPLOYMENT ADVISOR, reviewed EMR data (avail), discussed with nursing Attending Assessment/Plan: No overnight issues. Appreciate cardiac eval --d/c home today --pt advised about low salt diet, home BP monitoring and f/u with PCP as outpatient --pt in agreement with the plan
--- NOTE | 2018-03-03 10:04 | PN- Cardiology ---
Subjective Subjective: * No complaints. * Myocardial thickening noted on echo with hyperdynmamic EF. * sinus rhythm * mildly increased BP Objective Vital Signs and I&Os Vital Signs Date Time Temp Pulse Resp B/P B/P Pulse O2 O2 Flow FiO2 Mean Ox Delivery Rate 03/03 08 158/72 03/03 0806 97.9 63 18 97 Room Air 03/03 0805 158/74 03/02 2230 150/88 03/02 2204 98.6 69 22 162/90 99 03/02 1411 98.2 65 17 144/66 95 Room Air Intake & Output 03/03 1600 03/03 0800 03/03 0000 03/02 1600 03/02 0803/02 0000 Intake Total 120 220 400 320 Output Total 150 Balance 120 70 400 320 Intake, Oral 120 220 400 320 Output, Urine 150 Patient 247 lb 222 lb Weight Weight Bed scale Measurement Method Physical Exam: General: WD/WN male in NAD; alert and oriented x 3 HEENT: NC/AT, PERRL, EOMI Neck: no JVD, no carotid bruit Heart: RRR w/o murmur Lungs: clear bilaterally Abdomen: soft, NT, +ve bowel sounds Extremities: no edema Assessment/Plan Assessment/Plan * This patient has poorly controlled hypertension without any evidence of hypertensive urgency. Obtain an echocardiogram to assess for LVH and myocardial dysfunction.` * Would avoid NSAIDS. * Begin HCTZ 25mg daily. * Continue Nebivolol at 20mg daily. * Will observe her blood pressure on these medications and consider additional therapy. The patient should be on a low sodium and weight loss diet. * Would obtain a stress test, which can be done as an outpatient, for her exertional chest pain. In all likelihood, this symptom is related to her severe hypertension.
[2018-03-03] MEDS ORDERED: BYSTOLIC20 M1 PO (10:54)
[2018-03-03] MEDS ORDERED: HYDROCHLOROTHIA25 M1 PO (10:54)
--- NOTE | 2018-03-03 10:56 | Patient Discharge Instructions ---
Discharge Instructions General Discharge Information You were seen/treated for: hypertensive urgency Special Instructions: Follow-up PCP in 1 week after discharge f/u With director global strategic publisher sales in 1 week after discharge Diet Continue normal diet: Yes Activity Full Activity/No Limits: Yes Acute Coronary Syndrome Inclusion Criteria At DC or during hospital stay patient has or had the following: ACS DIAGNOSIS No Discharge Core Measures Meds if any: Prescribed or Continued at Discharge Meds if any: NOT Prescribed or Continued at Discharge Congestive Heart Failure Inclusion Criteria At DC or during hospital stay patient has or had the following: CHF DIAGNOSIS No Discharge Core Measures Meds if any: Prescribed or Continued at Discharge Meds if any: NOT Prescribed or Continued at Discharge Cerebrovascular accident Inclusion Criteria At DC or during hospital stay patient has or had the following: CVA/TIA Diagnosis No Discharge Core Measures Meds if any: Prescribed or Continued at Discharge Meds if any: NOT Prescribed or Continued at Discharge Venous thromboembolism Inclusion Criteria VTE Diagnosis No VTE Type NONE VTE Confirmed by (Test) NONE Discharge Core Measures - Per Current guidelines, there needs to be overlap - treatment for the first 5 days of Warfarin therapy. - If discharged on Warfarin prior to 5 days of - overlap therapy, the patient will need to be - assessed for post discharge needs including - *Post discharge parental anticoagulation - *Warfarin and/or parental anticoagulation education - *Follow up date to check INR post discharge At least 5 days overlap therapy as Inpatient No Meds if any: Prescribed or Continued at Discharge Note: Overlap Therapy is Warfarin and Anticoagulant Meds if any: NOT Prescribed or Continued at Discharge
--- NOTE | 2018-03-03 12:01 | Discharge Summary ---
Visit Information Visit Dates Admission Date: 03/01/18 Discharge Date: 03/03/2018 Hospital Course Course Attending Physician: [place]in YATES[place] Primary Care Physician: Akilah YATES,[facility] Course: Patient is a 52-year-old female with past medical history of long-standing hypertension diagnosed 10 years ago currently on bystolic presenting this admission after being sent in for abnormal EKG and elevated blood pressure s/p trauma at work. Patient reports that she went to urgent care after the incident at work. At the urgent care facility she was told her blood pressure was elevated to 204/120 and that she had an abnormal EKG. Vitals: MAXIMUM TEMPERATURE 98.9, heart rate 60-80s, respiration rate 18, blood pressure 202/114 --> 214/107 --> 188/90-->168/93, saturating at 98-100% on room air Labs: WBC 7, H&H 11.6 and 36.7, MCV 72.3, platelets 400 Sodium 142, potassium 3.7, chloride 100, bicarbonate 29, BUN 15, creatinine 0.8, glucose 133, calcium 9.7, T bili 0.3, AST 27, ALT 26, alkaline phosphatase 129, troponin 0.02 --> repeat troponin 0.02 EKG: Normal sinus rhythm, T-wave inversions in leads 1, 2, 3, aVF, V4, V5, V6, LVH Imaging: Chest x-ray: No acute pulmonary findings. Heart is at the upper limits of normal in size. Head CT: No acute intracranial pathology. C-spine: No acute bony abnormality in the cervical spine. Mild multilevel degenerative changes. Assessment and plan: The patient is a 52-year-old obese -[place] female with significant past medical history for hypertension currently noncompliant with medications presenting this admission for hypertensive urgency and possible concussion status post recent trauma. Problems: Hypertensive Urgency Concussion s/p trauma Microcytic Anemia She was admitted to telemetry for hypertensive urgency. She was maintained on continuous telemetry monitoring. Serial sets of troponin and EKG were negative. Vitals were monitored every shift. Patient was started on new medication hydrochlorothiazide 25 daily and continued on Bystolic 20 mg daily. Shift Manager on board. EchoCardiogram showed myocardial thickening with hyperdynamic ejection fraction. She was in normal sinus rhythm with no complaints throughout the hospital stay. Blood pressure moderately controlled with the 2 medications. 150/70 at the time of discharge She was counseled at the time of discharge about low-sodium diet and weight loss regimens. Cardiology referral was provided for outpatient, recommended to get outpatient stress test. Diet: Heart healthy Code: Full code DVT PPx: Lovenox, ALPs Allergies: Coded Allergies: shellfish derived (Severe, ANAPHYLAXIS 03/01/18) codeine (Intermediate, SEVERE HEADACHE 03/01/18) Pertinent Lab Results: CONCLUSIONS 1. Hyperdynamic EF of 75%. 2. Mild to moderate left ventricular hypertrophy. 3. Mild left atrial enlargement. 4. Trace mitral regurgitation. 5. Trace pulmonic regurgitation. IMPRESSION: Head CT: No acute intracranial pathology. C-spine: No acute bony abnormality in the cervical spine. Mild multilevel degenerative changes. Disposition Summary Disposition Principal Diagnosis: Hypertensive urgency Additional Diagnosis: Microcytic anemia Discharge Disposition: home or self care Discharge Instructions General Discharge Information Code Status: Full Code Patient's Diet: As tolerated Patient's Activity: As tolerated Follow-Up Instructions/Appts: Follow-up with PCP in 1 week after discharge Follow-up with driver salesman in 1 week after discharge , Needs outpatient stress test. Medications at Discharge Discharge Medications: Start taking the following new medications: Hydrochlorothiazide (Hydrochlorothiazide) 25 MG TABLET 25 Milligram ORAL DAILY Qty = 30 No Refills Comments: Last Taken:03/03/18 Time:0900 Nebivolol HCl (Bystolic) 20 MG TABLET 1 Tablet ORAL DAILY Qty = 30 No Refills Comments: Last Taken:03/03/18 Time:0900 Copies To: Akilah YATES,[facility]
== END 2018-03-03 13:31 | DRG 305 ==
LOC: ERH 18:17 → ERHI 21:39 → ENRESERV 22:11 → ENTRNSPT 22:26 → CMPTRNSPT 22:45 → 1NO 22:57 → ENPENDDIS 03-03 11:13 → 1NO 03-03 13:31
PROVIDERS: Physician Assistant Medical; Student in an Organized Health Care Education/Training Program
DX: I16.0 Hypertensive urgency (principal); I10 Essential (primary) hypertension; E66.9 Obesity, unspecified; Z68.32 Body mass index [BMI] 32.0-32.9, adult; S06.0X0A Concussion without loss of consciousness, initial encounter; W20.8XXA Other cause of strike by thrown, projected or falling object, initial encounter; Y92.414 Local residential or business street as the place of occurrence of the external cause; D50.9 Iron deficiency anemia, unspecified; Z91.013 Allergy to seafood; Z90.49 Acquired absence of other specified parts of digestive tract; Z88.5 Allergy status to narcotic agent
CPT/HCPCS: 1NSP; 36415; 36592; 71045; 81001; 82436; 93005; 93010; 93306; J0131; J0360; J1650